=== PATIENT | male | born 1955 | race Caucasian/White ===

== ENCOUNTER 2018-11-28 19:12 | Inpatient (IN) | payer OTHER ==
[~2018-11-28] VITALS: Ht 175.3 cm; Wt 98.6 kg
[2018-11-28] MEDS ORDERED: SODIUM CHLORIDE FLUSH 10ML SYR IVF ONE (19:30)
[2018-11-28 19:57] LABS: BASOPHILS # (AUTO) 0.02 x10^3/uL (0-0.1); BASOPHILS % (AUTO) 0 % (0-1); EOSINOPHILS % (AUTO) 2 % (1-7); LYMPHOCYTES # (AUTO) 1.32 x10^3/uL (1-3.4); LYMPHOCYTES % (AUTO) 10 % (22-44); MD NO; MEAN CORPUSCULAR HEMOGLOBIN 30.9 pg (27.5-34.5); MEAN CORPUSCULAR HGB CONC 32.1 g/dL (33.2-36.2); MEAN CORPUSCULAR VOLUME 96.3 fL (81-97); MEAN PLATELET VOLUME 7.2 fL (7.4-10.4); MONOCYTES # (AUTO) 0.41 x10^3/uL (0.2-0.8); MONOCYTES % (AUTO) 3 % (2-9); NEUTROPHILS # (AUTO) 11.42 x10^3/uL (1.8-6.8); NEUTROPHILS % (AUTO) 85 % (42-75); PLATELET COUNT 261 x10^3/uL (130-400); RED BLOOD COUNT 3.47 x10^6/uL (4.38-5.82); RED CELL DISTRIBUTION WIDTH 16.2 % (9.4-14.8)
--- NOTE | 2018-11-28 20:00 | NUR ---
PT REMAINS DROWSY BUT AROUSABLE. PER FLIGHT NURSE PT BECAME DROWSY ENROUTE AFTER HE RECEIVED ATIVAN. AT BEDSIDE.
[2018-11-28 20:10] LABS: ALANINE AMINOTRANSFERASE 39 U/L (12-78); ALBUMIN 2.7 g/dL (3.4-5.0); ANION GAP 9 mmol/L (5-15); CALCIUM 8.1 mg/dL (8.5-10.1); CHLORIDE 88 mmol/L (98-107)
[2018-11-28 20:20] LABS: CREATININE 4.72 mg/dL (0.7-1.3)
[2018-11-28 20:21] LABS: ALKALINE PHOSPHATASE 90 U/L (45-117); BILIRUBIN,TOTAL 0.4 mg/dL (0.2-1.0)
[2018-11-28 20:26] LABS: MICROSCOPIC INDICATED
[2018-11-28 20:27] LABS: CULTURE INDICATED? YES
[2018-11-28] MEDS ORDERED: NS + 40MEQ KCL 1,000 ML IV SCH (20:30)
[2018-11-28] MEDS ORDERED: MAGNESIUM SULFATE PMX 2GM/50ML 50 ML IV ONE (20:30)
[2018-11-28 20:47] LABS: OSMOLALITY,URINE 129 mOsm/kg (500-850)
[2018-11-28] MEDS ORDERED: AMLO10TA8 PO (20:47)
[2018-11-28] MEDS ORDERED: LOSA25TA25 PO (20:49)
[2018-11-28 20:50] LABS: SODIUM,URINE RANDOM 20 mmol/L
[2018-11-28] MEDS ORDERED: LEVO200V10 PO (20:50)
[2018-11-28] MEDS ORDERED: METF500S5 PO (20:50)
--- NOTE | 2018-11-28 20:50 | NUR ---
REPORT TO LEOBARDO
[2018-11-28] MEDS ORDERED: OMEP5POW PO (20:51)
[2018-11-28] MEDS ORDERED: ATOR20TA86 PO (20:52)
[2018-11-28] MEDS ORDERED: TAMS-11 PO (20:52)
[2018-11-28] MEDS ORDERED: MAGNESIUM SULFATE PMX 2GM/50ML 50 ML ONE (20:55)
[2018-11-28] MEDS ORDERED: NS + 40MEQ KCL 1,000 ML IV ONE (20:55)
[2018-11-28] MEDS ORDERED: CEFTRIAXONE PMX 1GM/50ML 50 ML ONE (20:55)
[2018-11-28] MEDS ORDERED: CEFTRIAXONE PMX 1GM/50ML 50 ML IV ONE (21:00)
--- NOTE | 2018-11-28 21:20 | NUR ---
REPORT FROM DO VIRGEN. PT LAYING IN SOFIA W/ EYES CLOSED, RESPIRATIONS EVEN/UNLABORED. SPO2 >90% ON O2 BY NC. BP/SPO2/ECG MONITORING IN PLACE. NSR ON MONITOR. SO AT BEDSIDE. PT MEDICATED PER EMAR. MAG 1.4, K+ 2.8. BC X2 DRAWN PRIOR TO ADMIN OF ABX. POC IS ADMIT, PT MADE AWARE AND DEMONSTRATE UNDERSTANDING. Addendum: 11/28/18 at 2218 by VANI PT MOSTLY DROWSY, ARROUSABLE TO PHYSICAL STIM. 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
[2018-11-28] MEDS ORDERED: PLEASE ENTER ALLERGIES MC SCH (22:00)
[2018-11-28] MEDS ORDERED: PROMETHAZINE 25 MG/ML, 1ML IM PRN (22:30)
[2018-11-28] MEDS ORDERED: BISACODYL 10 MG SUPP PR PRN (22:30)
[2018-11-28] MEDS ORDERED: GABAPENTIN 300 MG CAPSULE PO PRN (22:30)
[2018-11-28] MEDS ORDERED: morphine SULFATE 10 MG/ML, 1ML IVPush PRN (22:30)
[2018-11-28] MEDS ORDERED: hydrALAzine 20 MG/ML, 1ML IVPush PRN (22:30)
[2018-11-28] MEDS ORDERED: DOCUSATE 100 MG CAPSULE PO PRN (22:30)
[2018-11-28] MEDS ORDERED: ONDANSETRON 2MG/ML, 2ML IVPush PRN (22:30)
[2018-11-28] MEDS ORDERED: ACETAMINOPHEN 325 MG TABLET PO PRN (22:30)
[2018-11-28] MEDS ORDERED: POLYETHYLENE GLYCOL 17 GM PACKET PO PRN (22:30)
[2018-11-28] MEDS ORDERED: ONDANSETRON ODT 4 MG PO PRN (22:30)
--- NOTE | 2018-11-28 22:45 | NUR ---
PT ARROUSABLE TO VOICE, RETURNS EASILY TO SLEEP. RESPIRATIONS EVEN/UNLABORED. SO AT BEDSIDE. US UNDERWAY
[2018-11-28 22:58] LABS: HEMOGLOBIN A1C 6.9 % (4.2-6.3)
[2018-11-28] MEDS: CEFTRIAXONE PMX 1GM/50ML 50 ML IV SCH (23:00)
[2018-11-28] MEDS ORDERED: POTASSIUM CHLORIDE 40 MEQ in SODIUM CHLORIDE 0.9% 500 ML IV ONE (23:00)
[2018-11-28] MEDS: INSULIN LISPRO 100 UNITS/ML, PEN SQ-INSULIN SCH (23:06)
[2018-11-28 23:32] LABS: ANION GAP 10 mmol/L (5-15); CALCIUM 7.9 mg/dL (8.5-10.1); CHLORIDE 90 mmol/L (98-107); CREATININE 4.73 mg/dL (0.7-1.3)
[2018-11-28] MEDS ORDERED: HEPARIN 5,000 UNITS/ML, 1ML ONE (23:55)
[2018-11-29] MEDS: SODIUM CHLORIDE 0.9% 1,000 ML IV SCH ×2 (00:01→08:28)
[2018-11-29] MEDS: HEPARIN 5,000 UNITS/ML, 1ML SQ SCH ×3 (00:01→16:29)
--- NOTE | 2018-11-29 00:14 | NUR ---
TP RN: MD AWARE OF POTASSIUM LAB MD WANTS MEDTELE. READ BACK AND VERIFIED.
--- NOTE | 2018-11-29 02:04 | NUR ---
REPORT TO DO BRANDT
--- NOTE | 2018-11-29 02:16 | NUR ---
ASSUMED CARE OF PATIENT. SPOKE WITH DR PETERS. 40 MEQ IN A LITER STOPPED. HALF A LITER GIVEN. MD WANTS 40 MEQ IN 500 MLS GIVEN.
--- NOTE | 2018-11-29 03:14 | NUR ---
PT RESTING IN ROOM. FAMILY AT BEDSIDE. VS STABLE. ASSISTANT SHIFT SUPERVISOR ON. NSR NOTED. WILL CONTINUE TO MONITOR.
--- NOTE | 2018-11-29 04:51 | NUR ---
PT MOVED TO A HOSPITAL BED. PT RESTING IN ROOM. NO ACUTE DISTRESS NOTED. CALL LIGHT IN PLACE. EVENT PROMOTIONS COORDINATOR ON. NSR NOTED. WILL CONITNUE TO MONITOR.
--- NOTE | 2018-11-29 04:54 | NUR ---
PT RESTING IN ROOM. FAMILY IN ROOM. NO ACUTE DISTRESS NOTED. CALL LIGHT IN PLACE. WILL CONTINUE TO MONITOR.
[2018-11-29] MEDS ORDERED: LEVOTHYROXINE 100 MCG TABLET PO SCH (06:00)
--- NOTE | 2018-11-29 06:04 | NUR ---
PT REPORTS HE TAKES 50 MCG OF LEVOTHRYOXINE. PT HAS [address] PETERS CALLED. MEDICATION NOT GIVEN. WAITING TO TALK TO THE PROVIDER.
--- NOTE | 2018-11-29 06:05 | NUR ---
LAB IN ROOM
[2018-11-29 06:28] LABS: ALBUMIN 2.4 g/dL (3.4-5.0); ANION GAP 10 mmol/L (5-15); CALCIUM 8.4 mg/dL (8.5-10.1); CHLORIDE 93 mmol/L (98-107)
[2018-11-29 06:34] LABS: ALANINE AMINOTRANSFERASE 34 U/L (12-78); ALKALINE PHOSPHATASE 87 U/L (45-117); BILIRUBIN,TOTAL 0.3 mg/dL (0.2-1.0); CHOL/HDL RATIO 2.6; CHOLESTEROL, TOTAL 83 mg/dL (140-239); CREATININE 4.71 mg/dL (0.7-1.3); HDL CHOL % 39 % (26-37); HDL CHOLESTEROL (DIRECT) 32 mg/dL (40-60); LDL CHOLESTEROL,CALCULATED 19 mg/dL (54-169); LDL/HDL RATIO 0.6 (0.5-3.0); TOTAL PROTEIN 5.5 g/dL (6.4-8.2); TRIGLYCERIDES 161 mg/dL (50-200); VLDL CHOLESTEROL 32 mg/dL (0-25)
[2018-11-29] MEDS: INSULIN LISPRO 100 UNITS/ML, PEN SQ-INSULIN SCH ×4 (06:36→21:00)
[2018-11-29 06:38] LABS: BASOPHILS # (AUTO) 0.03 x10^3/uL (0-0.1); BASOPHILS % (AUTO) 0 % (0-1); EOSINOPHILS # (AUTO) 0.29 x10^3/uL (0-0.4); EOSINOPHILS % (AUTO) 3 % (1-7); LYMPHOCYTES # (AUTO) 1.36 x10^3/uL (1-3.4); LYMPHOCYTES % (AUTO) 14 % (22-44); MD NO; MEAN CORPUSCULAR HEMOGLOBIN 32.9 pg (27.5-34.5); MEAN CORPUSCULAR HGB CONC 34.2 g/dL (33.2-36.2); MEAN CORPUSCULAR VOLUME 96.3 fL (81-97); MONOCYTES # (AUTO) 0.38 x10^3/uL (0.2-0.8); MONOCYTES % (AUTO) 4 % (2-9); NEUTROPHILS # (AUTO) 7.72 x10^3/uL (1.8-6.8); NEUTROPHILS % (AUTO) 79 % (42-75); PLATELET COUNT 230 x10^3/uL (130-400); RED BLOOD COUNT 3.25 x10^6/uL (4.38-5.82); RED CELL DISTRIBUTION WIDTH 15.3 % (9.4-14.8)
--- NOTE | 2018-11-29 07:04 | NUR ---
REPORT RECEIVED FROM DO BRANDT. ASSUMING PRIMARY CARE OF PT.
--- NOTE | 2018-11-29 07:08 | NUR ---
Report given to DO Pulido
--- NOTE | 2018-11-29 07:15 | NUR ---
PT AWAKE AND ALERT LAYING ON HOSPITAL BED. AT BEDSIDE. PT HAS NO COMPLAINTS OF PAIN OR DISCOMFORT AT THIS TIME. PT REQUESTING WATER. VS OBTAINED. VSS. REGULAR DIET TRAY ORDERED. PERSONAL BELONGINGS AND CALL LIGHT WITHIN REACH OF PT. NO OTHER NEEDS AT THIS TIME. RN TO ADMINISTER MEDICATIONS PER EMAR.
[2018-11-29] MEDS ORDERED: HEPARIN 5,000 UNITS/ML, 1ML ONE (07:23)
[2018-11-29] MEDS ORDERED: TAMSULOSIN 0.4 MG CAP.ER.24H ONE (07:23)
[2018-11-29] MEDS ORDERED: AMLODIPINE 5 MG TABLET ONE (07:23)
--- NOTE | 2018-11-29 07:27 | NUR ---
RN REQUESTED MEDICATIONS WITH PHARMACY.
[2018-11-29] MEDS ORDERED: AMLO-150 PO (08:02)
[2018-11-29] MEDS ORDERED: TAMS-11 PO (08:08)
[2018-11-29] MEDS ORDERED: OMEP-110 PO (08:08)
[2018-11-29] MEDS ORDERED: ATOR40TA78 PO (08:08)
[2018-11-29] MEDS ORDERED: LOSA1TAB25 PO (08:08)
[2018-11-29] MEDS ORDERED: LEVO50TA5 PO (08:08)
[2018-11-29] MEDS ORDERED: METF500T17 PO (08:08)
[2018-11-29] MEDS ORDERED: GABA600T7 PO (08:25)
[2018-11-29] MEDS ORDERED: CHLO10TA2 PO (08:25)
[2018-11-29] MEDS: AMLODIPINE 10 MG TAB PO SCH (08:28)
--- NOTE | 2018-11-29 08:30 | NUR ---
RN ADMINSITERED MEDICATION PER EMAR. RN UPDATED MED REC IN COMPUTER. RN TO UPDATE MD WHEN ROUND.
[2018-11-29] MEDS ORDERED: ERGOCALCIFEROL 50,000 UNIT CAPSULE PO SCH (09:00)
[2018-11-29] MEDS ORDERED: TAMSULOSIN 0.4 MG CAP.ER.24H PO SCH ×2 (09:00→21:00)
--- NOTE | 2018-11-29 09:47 | NUR ---
RN CALLED DR. BAZZI TO UPDATE HIM ON MED REC BEING UPDATED AND NEEDING AN ORDER TO LEAVE IN OCAMPO CATHETER. STATES HE WOULD LOOK OVER MED REC AND PLACE ORDERS. REPORT TO DO ATKINSON TO ASSUME PRIMARY CARE OF PT.
--- NOTE | 2018-11-29 09:48 | NUR ---
REPORT FROM MIO LEI. ASSUMED CARE
--- NOTE | 2018-11-29 10:20 | NUR ---
Elena thomas in ED - 11/29/18 at 1022 by [facility]ED TO [facility], [facility], [facility], [facility]
--- NOTE | 2018-11-29 11:07 | NUR ---
PT LEAVING ER NOW. OCAMPO BAG EMPTIED PRIOR TO LEAVING. 1000 ML REMOVED. TECH ADVISED TO LET RN KNOW.
[2018-11-29] MEDS ORDERED: GABAPENTIN 300 MG CAPSULE PO PRN (12:30)
[2018-11-29 12:35] LABS: ABSOLUTE RETICS # 0.04 x10^6/uL (0.5-1.5); RED BLOOD COUNT 3.42 x10^6/uL (4.38-5.82); RETICULOCYTE COUNT % 1.17 % (0.5-1.5)
[2018-11-29 12:41] LABS: ANION GAP 9 mmol/L (5-15); CALCIUM 8.1 mg/dL (8.5-10.1); CHLORIDE 94 mmol/L (98-107); CREATININE 4.63 mg/dL (0.7-1.3)
[2018-11-29 12:42] LABS: CALCIUM 8.1 mg/dL (8.5-10.1)
[2018-11-29 14:01] VITALS: BP 143/77
[2018-11-29] MEDS: LACTATED RINGERS 1,000 ML IV SCH (16:55)
[2018-11-29 17:00] LABS: MICROSCOPIC AUTO
[2018-11-29 17:05] LABS: CREATININE,URINE RANDOM 43.7 mg/dL
[2018-11-29 19:50] VITALS: BP 153/59
[2018-11-29] MEDS: ATORVASTATIN 20 MG TABLET PO SCH (20:34)
[2018-11-30] MEDS: CEFTRIAXONE PMX 1GM/50ML 50 ML IV SCH (00:28)
[2018-11-30] MEDS: HEPARIN 5,000 UNITS/ML, 1ML SQ SCH ×3 (00:28→17:08)
[2018-11-30] MEDS: LACTATED RINGERS 1,000 ML IV SCH ×3 (00:28→17:08)
[2018-11-30 01:21] VITALS: BP 130/76
[2018-11-30 06:33] LABS: BASOPHILS # (AUTO) 0.02 x10^3/uL (0-0.1); BASOPHILS % (AUTO) 0 % (0-1); EOSINOPHILS # (AUTO) 0.33 x10^3/uL (0-0.4); EOSINOPHILS % (AUTO) 4 % (1-7); LYMPHOCYTES # (AUTO) 1.35 x10^3/uL (1-3.4); LYMPHOCYTES % (AUTO) 17 % (22-44); MD NO; MEAN CORPUSCULAR HEMOGLOBIN 31.6 pg (27.5-34.5); MEAN CORPUSCULAR VOLUME 95.9 fL (81-97); MEAN PLATELET VOLUME 7.2 fL (7.4-10.4); MONOCYTES # (AUTO) 0.32 x10^3/uL (0.2-0.8); MONOCYTES % (AUTO) 4 % (2-9); NEUTROPHILS # (AUTO) 5.97 x10^3/uL (1.8-6.8); NEUTROPHILS % (AUTO) 75 % (42-75); PLATELET COUNT 227 x10^3/uL (130-400); RED BLOOD COUNT 3.39 x10^6/uL (4.38-5.82); RED CELL DISTRIBUTION WIDTH 15.8 % (9.4-14.8)
[2018-11-30 06:47] LABS: CHLORIDE 96 mmol/L (98-107)
[2018-11-30 06:51] LABS: ALANINE AMINOTRANSFERASE 29 U/L (12-78); ALBUMIN 2.4 g/dL (3.4-5.0); ALKALINE PHOSPHATASE 91 U/L (45-117); ANION GAP 10 mmol/L (5-15); BILIRUBIN,TOTAL 0.2 mg/dL (0.2-1.0); CALCIUM 8.6 mg/dL (8.5-10.1); CREATININE 4.04 mg/dL (0.7-1.3); TOTAL PROTEIN 5.9 g/dL (6.4-8.2)
[2018-11-30] MEDS: INSULIN LISPRO 100 UNITS/ML, PEN SQ-INSULIN SCH ×3 (07:00→16:00)
[2018-11-30] MEDS ORDERED: POTASSIUM CHLORIDE 20 MEQ TAB.ER.PRT PO ONE (08:30)
[2018-11-30 08:50] VITALS: BP 137/84
[2018-11-30] MEDS: ATORVASTATIN 20 MG TABLET PO SCH (08:51)
[2018-11-30] MEDS: AMLODIPINE 10 MG TAB PO SCH (08:51)
[2018-11-30] MEDS ORDERED: LEVOTHYROXINE 50 MCG TABLET PO SCH (09:00)
[2018-11-30] MEDS ORDERED: OMEPRAZOLE 20 MG CAPSULE.DR PO SCH (09:00)
[2018-11-30] MEDS ORDERED: IRON SUCROSE COMPLEX 100MG/5ML IV SCH (12:00)
[2018-11-30] MEDS ORDERED: ERGOCALCIFEROL 50,000 UNIT CAPSULE PO SCH (12:00)
[2018-11-30 13:10] VITALS: BP 139/83
== END 2018-11-30 18:55 | disposition short-term general hospital (02) | DRG 682 ==
LOC: ED 20:03 → EDIP 20:24 → 4WST 11-29 11:30
PROVIDERS: ADMIT Internal Medicine; ATTEND Internal Medicine
DX: N17.0 Acute kidney failure with tubular necrosis (principal); E43 Unspecified severe protein-calorie malnutrition; N39.0 Urinary tract infection, site not specified; E87.1 Hypo-osmolality and hyponatremia; N13.9 Obstructive and reflux uropathy, unspecified; D64.9 Anemia, unspecified; E03.9 Hypothyroidism, unspecified; E11.22 Type 2 diabetes mellitus with diabetic chronic kidney disease; E55.9 Vitamin D deficiency, unspecified; E78.5 Hyperlipidemia, unspecified; E83.42 Hypomagnesemia; E87.6 Hypokalemia; I12.9 Hypertensive chronic kidney disease with stage 1 through stage 4 chronic kidney disease, or unspecified chronic kidney disease; K21.9 Gastro-esophageal reflux disease without esophagitis; N18.2 Chronic kidney disease, stage 2 (mild); N25.0 Renal osteodystrophy; N40.0 Benign prostatic hyperplasia without lower urinary tract symptoms; T50.2X5A Adverse effect of carbonic-anhydrase inhibitors, benzothiadiazides and other diuretics, initial encounter; Z79.899 Other long term (current) drug therapy; Z80.6 Family history of leukemia; Z82.49 Family history of ischemic heart disease and other diseases of the circulatory system; Z87.01 Personal history of pneumonia (recurrent); Z87.891 Personal history of nicotine dependence; Z68.32 Body mass index [BMI] 32.0-32.9, adult
CPT/HCPCS: 36415; 71045; 76770; 80048; 80053; 80061; 80307; 81001; 82306; 82310; 82330; 82436; 82570; 82607; 82728; 82962; 83036; 83540; 83550; 83605; 83735; 83880; 83930; 83935; 83970; 84100; 84133; 84156; 84300; 84443; 84550; 85025; 85045; 87040; 87086; 87205; 93005; 93975; G0378; J0696; J1644; J1756; J3480; J3475; J7030; J7040; J7120